=== PATIENT | female | born 1965 | race American Indian/Alaskan Native ===

== ENCOUNTER 2025-11-15 07:02 | Emergency (ER) | payer SELFPAY ==
[~2025-11-15] VITALS: Ht 162.6 cm; Wt 90.4 kg
[2025-11-15 07:03] VITALS: BP 153/82; PULSE 97; O2SAT 96
--- NOTE | 2025-11-15 09:25 | Physician Documentation ---
History of Present Illness ~ Chief Complaint: Back Pain Stated Complaint: BACK PAIN Time Seen by MD: 08:57 Primary Medical Doctor: none Source: patient Mode of Arrival: Ambulatory Exam Limitations: no limitations HPI 60-year-old resident of [place] with chronic back pain including cervical neck pain and lumbar neck pain with sciatic. Patient states she is having exacerbation of back pain which could be associated with the cold weather. She was evaluated in emergency room in [facility]. Patient has a paperwork which included prescriptions for prednisone, ketorolac, and ibuprofen. She did not oyster picker her prescription. No bowel or bladder incontinence. No other associated symptoms. Medication Reconciliation Allergies: Coded Allergies: latex (Unverified Allergy, Unknown, 11/15/25) acetaminophen (Unverified Adverse Reaction, Mild, made me sick, 11/15/25) oxycodone (Unverified Adverse Reaction, Mild, made me sick, 11/15/25) Past Medical History Past Medical History: *MUSCULOSKELETAL*, Chronic Pain, Osteoarthritis Past Surgical History: noncontributory Lives with: Alone Lives In: Homeless Occupation: disabled Review of Systems All Other Systems at this time: Reviewed and Negative Musculoskeletal: Reports: see HPI Physical Exam Physical Exam Vital Signs: RN Vital Signs have been reviewed: Yes, Temperature: 98.0, Heart Rate: 97, Respiratory Rate: 16, BP: 153/82, Pulse Oximetry: 96, Weight: 90.400 Oxygen Flow Rate: 0 Physical Exam General: Alert, no apparent distress. HEENT: moist mucous membranes. Neck: Full range of motion. Respiratory: No respiratory distress speaking in full sentences Chest: No accessory muscle use. Cardiovascular: Appears well perfused Back: No obvious spinal process tenderness or deformity. SI joint tenderness bilaterally with no spinal paresthesia. Paraspinal muscle tenderness without spasm or rigidity Neurologic: Oriented x4. Psychiatric: Normal mood and affect. Skin: Normal color, warm and dry. No edema, no ecchymosis. Progress Results/Orders Results/Orders Orders - TRINI FRAZIER NP Ketorolac Trometh 30mg/Ml Vial (Toradol (11/15/25 09:20) Vital Signs 11/15/25 07:03 Temp 98.0 Pulse 97 Resp 16 B/P (MAP) 153/82 Pulse Ox 96 O2 Flow Rate 0 Medical Decision Making Additional information obtaine: N/A Findings Acute on chronic lumbar pain with sciatic. Patient has been evaluated on the in [facility]. Toradol shot administered for symptomatic relief. Patient will continue taking ibuprofen. Differential Dx:Considerations: Strain, Other Departure Time of Disposition: Disposition: HOME / SELF CARE / HOMELESS Impression: Primary Impression: Low back pain Additional Impression: Sciatica Condition: Stable Discharge Instructions: Sciatica Additional Instructions: Continue to take Tylenol or ibuprofen as needed for [id number] pain. Try to fill the prescriptions that you were given on the . Monitor for any new or worsening symptoms Referrals: NO PRIMARY CARE PROVIDER (PCP) Education Educated: Patient Educated regarding: diagnosis, treatment, need for follow up Signature Scribe Signature: No scribe Attestation: The note accurately reflects work and decisions made by me.Trini Frazier - FERMÍN 11/15/25 09:27 TRINI FRAZIER NP Nov 15, 2025 09:25
[2025-11-15 09:34] VITALS: RESP 16
[2025-11-15] MEDS: ketorolac trometh 30MG/ML vial 30 MG/ML VIAL IM ONE (09:34)
[2025-11-15 09:53] VITALS: TEMP 98
== END 2025-11-15 09:54 | disposition home or self-care (01) ==
LOC: ER 07:03
DX: M54.40 Lumbago with sciatica, unspecified side (principal); G89.29 Other chronic pain; M19.90 Unspecified osteoarthritis, unspecified site; Z88.5 Allergy status to narcotic agent; Z91.040 Latex allergy status; Z59.00 Homelessness unspecified; Z60.2 Problems related to living alone
CPT/HCPCS: 96372; 99283; J1885